=== PATIENT | female | born 1995 | race African-American/Black ===

== ENCOUNTER 2023-11-09 13:05 | Emergency (ER) | payer OTHER, SELFPAY ==
[2023-11-09] MEDS ORDERED: Ibuprofen 200 MG TAB ONE (13:39)
[2023-11-09] MEDS ORDERED: Sulfameth/Trimethoprim DS 800-160mg TAB ONE (13:40)
== END 2023-11-09 13:47 | disposition home or self-care (01) ==
LOC: CSHERS 13:05
DX: N61.1 Abscess of the breast and nipple (principal); F17.290 Nicotine dependence, other tobacco product, uncomplicated
CPT/HCPCS: 99282

== ENCOUNTER 2023-11-13 13:40 | Emergency (ER) | payer OTHER ==
[2023-11-13] MEDS ORDERED: Ondansetron ODT 4 MG TAB ONE (14:36)
[2023-11-13] MEDS ORDERED: Dexamethasone 10 MG/ML VIAL ONE (14:36)
== END 2023-11-13 14:46 | disposition home or self-care (01) ==
LOC: CSHERS 13:40
DX: J02.9 Acute pharyngitis, unspecified (principal); B96.89 Other specified bacterial agents as the cause of diseases classified elsewhere; F17.290 Nicotine dependence, other tobacco product, uncomplicated
CPT/HCPCS: 87081; 87430; 96372; 99284; J1100; Q0162

== ENCOUNTER 2023-11-14 16:12 | Emergency (ER) | payer OTHER ==
[~2023-11-14 16:12] MED LIST: Iopamidol 300 61% 100 ML VIAL FS ONE
[2023-11-14] MEDS ORDERED: Acetaminophen 500 MG TAB ONE (16:55)
[2023-11-14] MEDS ORDERED: Ketorolac Tromethamine 30 MG (1 mL) VIAL ONE (18:08)
[2023-11-14] MEDS ORDERED: Ondansetron PF 4 MG/2 ML Vial ONE (18:08)
[2023-11-14 18:19] LABS: #Basophils 0.02 10x3/uL (0.0-0.2); #Eosinphils 0.12 10x3/uL (0.0-0.5); #Monocytes 0.74 10x3/uL (0.0-1.1); #Neutrophils 5.21 10x3/uL (1.5-8.4); %Basophils 0.3 % (0.0-2.0); %Eosinophils 1.5 % (0.0-6.0); %Lymphocytes 23.3 % (18.0-47.0); %Monocytes 9.3 % (0.0-10.0); %Neutrophils 65.3 % (40.0-75.0); Hematocrit 35.2 % (34.9-44.5); Hemoglobin 13.1 g/dL (12.0-15.5); Mean Corpuscular HGB CONC 37.2 g/dL (32.0-36.0); Mean Corpuscular Hemoglobin 34.1 pg (27.0-33.0); Mean Corpuscular Volume 91.7 fL (81.6-98.3); Mean Platelet Volume 10.7 fL (7.4-10.4); Platelet Count 266 10x3/uL (150-450); RBC Distribution Width 11.6 % (11.5-14.5); Red Blood Cell (RBC) Count 3.84 10x6/uL (3.90-5.03)
[2023-11-14 18:32] LABS: ALT (SGPT) 13 U/L (8-55); AST (SGOT) 14 U/L (5-34); Albumin 3.9 g/dL (3.5-5.0); Alkaline Phosphatase 63 U/L (40-110); Anion Gap 13 mmol/L (10-20); BUN (Urea Nitrogen) 5 mg/dL (7.0-18.7); Bilirubin, Total 0.3 mg/dL (0.2-1.2); Calc. Creatinine Clearance 0 mL/min (70-130); Calcium 9.4 mg/dL (7.8-10.44); Carbon Dioxide 24 mmol/L (22-29); Chloride 102 mmol/L (98-107); Estimated GFR 95; Globulin 3.6 g/dL (2.4-3.5); Glucose 96 mg/dL (70-105); Protein, Total 7.5 g/dL (6.0-8.3); Sodium 136 mmol/L (136-145)
[2023-11-14] MEDS ORDERED: Clindamycin/D5W 900 MG in Premix 1 BAG IVPB SCH (18:45)
[2023-11-14 19:13] LABS: Influenza A by NAA Not Detected (NotDetected); Influenza B by NAA Not Detected (NotDetected); SARS-CoV-2 NAA Rapid Test Not Detected (NotDetected)
[2023-11-14] MEDS ORDERED: Potassium Chloride 20 MEQ TAB ONE (19:59)
== END 2023-11-14 20:28 | disposition home or self-care (01) ==
LOC: CSHERS 16:12
DX: J02.9 Acute pharyngitis, unspecified (principal); F17.290 Nicotine dependence, other tobacco product, uncomplicated
CPT/HCPCS: 36415; 70491; 80053; 83605; 85025; 87040; 96374; 96375; J1885; J2405; J3490; Q9967

== ENCOUNTER 2024-03-04 09:45 | Emergency (ER) | payer SELFPAY | END 2024-03-04 11:20 | disposition left against medical advice (07) | LOC: CSHERS 09:45 | DX: Z53.21 Procedure and treatment not carried out due to patient leaving prior to being seen by health care provider (principal) ==

== ENCOUNTER 2024-03-27 09:09 | Emergency (ER) | payer OTHER, SELFPAY ==
[2024-03-27 09:59] LABS: Bilirubin Neg (Negative); Blood, Urine Negative (Negative); Clarity Clear (Clear); Glucose, Urine (Dipstick) Normal (Negative); Ketone, Urine Negative (Negative); Leukocyte Negative (Negative); Nitrite Negative (Negative); Protein, Urine (Dipstick) Negative (Neg-Trace); Urobilinogen Normal mg/dL (Less than 2)
[2024-03-27 10:07] LABS: Pregnancy Test - Urine (BHCG) Negative (Negative); Pregu Control Background? CLEAR/WHITE (CLR/WHITE); Pregu Control Bar Appear? YES (CONTROL BAR)
[2024-03-27 10:10] LABS: Bacteria/HPF None Seen HPF (None Seen); CAUTI Indications for Culture Dysuria,urgency,freq; RBC/HPF None Seen HPF (0-3); Squamous Epithelial 0-3 HPF (0-3); WBC/HPF None Seen HPF (0-3)
[2024-03-27 10:11] LABS: Urine Culture Reflex No No
[2024-03-27] MEDS ORDERED: cefTRIAXone (ROCEPHIN) 500 MG VIAL ONE (10:18)
[2024-03-27 17:24] LABS: Chlamydia by PCR, Vaginal Swab Not Detected (NotDetected); GC by PCR, Vaginal Swab Not Detected (NotDetected)
== END 2024-03-27 11:15 | disposition home or self-care (01) ==
LOC: CSHERS 09:09
DX: N76.0 Acute vaginitis (principal); B96.89 Other specified bacterial agents as the cause of diseases classified elsewhere; F17.290 Nicotine dependence, other tobacco product, uncomplicated
CPT/HCPCS: 81001; 81025; 87480; 87491; 87510; 87591; 87660; 96372; 99283; J0696